=== PATIENT | female | born 1985 | race Two or more races ===

== ENCOUNTER 2019-10-07 18:22 | Observation (INO) | payer OTHER ==
[~2019-10-07] VITALS: Ht 156 cm; Wt 68.7 kg
[2019-10-07 18:48] VITALS: BP 99/62
[2019-10-07] MEDS: RINGERS SOLUTION,LACTATED 1,000 ML IV SCH ×3 (20:08→23:26)
[2019-10-08] MEDS: RINGERS SOLUTION,LACTATED 1,000 ML IV SCH (07:53)
== END 2019-10-08 10:00 | disposition home or self-care (01) ==
LOC: 4S 18:22
PROVIDERS: ADMIT Obstetrics & Gynecology; ATTEND Obstetrics & Gynecology
DX: O36.8330 Maternal care for abnormalities of the fetal heart rate or rhythm, third trimester, not applicable or unspecified (principal); O09.513 Supervision of elderly primigravida, third trimester; Z3A.35 35 weeks gestation of pregnancy
CPT/HCPCS: 59025; 76805; 81001; 87081; G0378 ×2; J7120 ×2

== ENCOUNTER 2019-10-31 11:29 | Inpatient (IN) | payer OTHER ==
[~2019-10-31] VITALS: Ht 154.9 cm; Wt 72.1 kg
[2019-10-31] MEDS ORDERED: RINGERS SOLUTION,LACTATED 1,000 ML IV PRN (11:52)
[2019-10-31] MEDS ORDERED: OXYTOCIN 30 UNITS/LACT RINGERS 500 ML IV ONE (11:52)
[2019-10-31] MEDS ORDERED: OXYGEN THERAPY IH SCH (12:00)
[2019-10-31] MEDS ORDERED: METOCLOPRAMIDE HCL 5 MG/ML 2 ML VIAL IVP PRN (12:00)
[2019-10-31] MEDS ORDERED: CITRIC ACID/SODIUM CITRATE 30 ML SOLUTION UDCUP PO PRN (12:00)
[2019-10-31] MEDS ORDERED: METHYLERGONOVINE MALEATE 0.2 MG/ML VIAL IM PRN (12:00)
[2019-10-31 12:03] VITALS: BP 107/74
[2019-10-31] MEDS ORDERED: PREN-217 PO (12:05)
[2019-10-31] MEDS ORDERED: DINOPROSTONE 10 MG VAGINAL SUPPOSITORY VG ONE (12:30)
[2019-10-31] MEDS: RINGERS SOLUTION,LACTATED 1,000 ML IV SCH ×2 (13:03→19:49)
[2019-10-31 13:55] LABS: BASOPHILS % (AUTO) 0.3 % (0.0-2.0); EOSINOPHILS % (AUTO) 0.3 % (1.0-6.0); HEMATOCRIT 33.4 % (36-46); HEMOGLOBIN 11.2 g/dL (12.0-16.0); LYMPHOCYTES # (AUTO) 1.5 K/uL (1.0-4.8); LYMPHOCYTES % (AUTO) 15.3 % (22.0-44.0); MEAN CORPUSCULAR HEMOGLOBIN 30.1 pg (26.0-34.0); MEAN CORPUSCULAR HGB CONC 33.6 G/dL (31.0-37.0); MEAN CORPUSCULAR VOLUME 90 fL (80-100); MONOCYTES # (AUTO) 0.5 K/uL (0.1-1.0); MONOCYTES % (AUTO) 4.9 % (2.0-9.0); NEUTROPHILS # (AUTO) 7.9 K/uL (1.8-7.7); NEUTROPHILS % (AUTO) 79.2 % (40.0-70.0); PLATELET COUNT (AUTO) 259 K/uL (150-450); RED BLOOD CELL COUNT(AUTO) 3.73 MIL/uL (4.00-5.20); RED CELL DISTRIBUTION WIDTH 14.1 % (11.5-14.5)
[2019-10-31] MEDS: FentaNYL CITRATE-PF 100 MCG/2 ML VIAL IVP PRN ×2 (22:20→22:45)
[2019-11-01] MEDS ORDERED: OXYTOCIN 30 UNITS/LACT RINGERS 500 ML IV PRN (01:43)
[2019-11-01] MEDS ORDERED: ROPIVACAINE HCL/PF 0.2% 100 ML ED ONE (03:57)
[2019-11-01] MEDS ORDERED: DiphenhydrAMINE HCL 50 MG/ML VIAL IVP PRN ×2 (04:30→12:15)
[2019-11-01] MEDS ORDERED: ROPIVACAINE HCL/PF 0.2% 100 ML ED PRN ×2 (04:30→12:15)
[2019-11-01] MEDS ORDERED: NALBUPHINE HCL 10 MG/ML VIAL IVP PRN (04:30)
[2019-11-01] MEDS ORDERED: ONDANSETRON HCL 4 MG/2 ML VIAL IVP PRN ×2 (04:30→12:15)
[2019-11-01] MEDS: RINGERS SOLUTION,LACTATED 1,000 ML IV SCH ×3 (04:31→11:56)
[2019-11-01] MEDS ORDERED: MINERAL OIL 30 ML UDCUP PO ONE (12:15)
[2019-11-01] MEDS ORDERED: OXYTOCIN 30 UNITS/LACT RINGERS 500 ML IV ONE (13:33)
[2019-11-01] MEDS ORDERED: LANOLIN 7 GM OINTMENT TP PRN (13:45)
[2019-11-01] MEDS ORDERED: BENZOCAINE 20%/MENTHOL 56 GM SPRAY CANISTER TP PRN (13:45)
[2019-11-01] MEDS ORDERED: OxyCODONE HCL/ACETAMINOPHEN 5-325 MG TABLET PO PRN ×2 (13:45)
[2019-11-01] MEDS ORDERED: GLYCERIN/WITCH HAZEL LEAF 40 PADS JAR TP PRN (13:45)
[2019-11-01] MEDS ORDERED: LIDOCAINE/PF 1% 30 ML VIAL INJ PRN (13:45)
[2019-11-01] MEDS: IBUPROFEN 800 MG TABLET PO PRN ×2 (13:58→21:55)
[2019-11-01] MEDS: MAGNESIUM HYDROXIDE SUSPENSION 30 ML UDCUP PO PRN ×2 (20:51→20:52)
[2019-11-02 06:28] LABS: BASOPHILS % (AUTO) 0.3 % (0.0-2.0); EOSINOPHILS % (AUTO) 0.6 % (1.0-6.0); HEMATOCRIT 27.5 % (36-46); HEMOGLOBIN 9.4 g/dL (12.0-16.0); LYMPHOCYTES # (AUTO) 2.4 K/uL (1.0-4.8); MEAN CORPUSCULAR HEMOGLOBIN 30.7 pg (26.0-34.0); MEAN CORPUSCULAR HGB CONC 34.3 G/dL (31.0-37.0); MEAN CORPUSCULAR VOLUME 89 fL (80-100); MONOCYTES # (AUTO) 1.1 K/uL (0.1-1.0); MONOCYTES % (AUTO) 7.1 % (2.0-9.0); NEUTROPHILS # (AUTO) 12.1 K/uL (1.8-7.7); PLATELET COUNT (AUTO)-OB 216 K/uL (150-450); RED BLOOD CELL COUNT(AUTO) 3.08 MIL/uL (4.00-5.20); RED CELL DISTRIBUTION WIDTH 13.7 % (11.5-14.5)
[2019-11-02] MEDS ORDERED: FERR-89 PO (10:07)
[2019-11-02] MEDS ORDERED: IBUP-2071 PO (10:07)
[2019-11-02] MEDS ORDERED: DOCU-275 PO (10:08)
[2019-11-02] MEDS: IBUPROFEN 800 MG TABLET PO PRN (11:24)
== END 2019-11-02 14:20 | disposition home or self-care (01) | DRG 807 ==
LOC: INTOOBSV 11:29 → OBSVTOIN 11:29 → 4S 11:29
PROVIDERS: ADMIT Obstetrics & Gynecology; ATTEND Obstetrics & Gynecology
PROC: 10D07Z8 Extraction of Products of Conception, Other, Via Natural or Artificial Opening (ICD-10-PCS; principal; 2019-11-01)
PROC: 0KQM0ZZ Repair Perineum Muscle, Open Approach (ICD-10-PCS; 2019-11-01)
PROC: 3E0R3BZ Introduction of Anesthetic Agent into Spinal Canal, Percutaneous Approach (ICD-10-PCS; 2019-11-01)
PROC: 00HU33Z Insertion of Infusion Device into Spinal Canal, Percutaneous Approach (ICD-10-PCS; 2019-11-01)
DX: O70.1 Second degree perineal laceration during delivery (principal); Z37.0 Single live birth; Z3A.39 39 weeks gestation of pregnancy
CPT/HCPCS: 86850; 86900; 86901; J2590; J2795; J3010; J7120